=== PATIENT | male | born 1990 | race Caucasian/White ===

== ENCOUNTER 2018-01-17 20:27 | Emergency (ER) | payer SELFPAY ==
[2018-01-17] MEDS ORDERED: DEXAMETHASONE 10 MG/ML VIAL ONE (21:15)
[2018-01-17] MEDS ORDERED: NA CHLORIDE 0.9% 1,000 ML ONE (21:16)
[2018-01-17] MEDS ORDERED: ACETAMINOPHEN 500 MG TAB ONE (21:16)
[2018-01-17] MEDS ORDERED: ONDANSETRON 4 MG/2 ML VIAL ONE (21:16)
[2018-01-17] MEDS ORDERED: KETOROLAC 30 MG/ML INJ ONE (21:16)
[2018-01-17 21:22] LABS: Absolute Lymphocytes (CBC) 2.9 K/uL (0.7-4.9); Absolute Monocytes 0.4 K/uL (0.1-1.3); Absolute Neutrophil 4.9 K/uL (1.8-8.0); Basophils % 0.5 % (0-1.3); Eosinophils % 2.6 % (0-4.4); Hematocrit 40.6 % (39.6-49.0); Lymphocytes % 34.1 % (15.3-44.8); MCV 87.9 fL (80-100); RBC Red Blood Cell Count 4.62 M/uL (4.33-5.43)
--- NOTE | 2018-01-17 21:23 | RAD REPORT ---
EXAM DESCRIPTION: RAD - Chest Single View - 01/17/2018 9:15 pm CLINICAL HISTORY: SOB Chest pain. COMPARISON: <Comparisons> FINDINGS: Portable technique limits examination quality. The lungs are grossly clear. The heart is normal in size. No displaced fractures. IMPRESSION: No acute intrathoracic process suspected.
--- NOTE | 2018-01-17 21:33 | RAD REPORT ---
EXAM DESCRIPTION: CT - Head Brain Wo Cont - 01/17/2018 9:28 pm CLINICAL HISTORY: HEADACHE COMPARISON: No comparisons TECHNIQUE: All CT scans are performed using dose optimization technique as appropriate and may inclu de automated exposure control or mA/KV adjustment according to patient size. FINDINGS: No intracranial hemorrhage, hydrocephalus or extra-axial fluid collection.No areas of brai n edema or evidence of midline shift. The paranasal sinuses and mastoids are clear. The calvarium is intact. IMPRESSION: No acute intracranial abnormality.
[2018-01-17 21:34] LABS: ALT/SGPT 30 U/L (12-78); AST/SGOT 18 U/L (15-37); Albumin 4.3 g/dL (3.4-5.0); Alkaline Phosphatase 68 U/L (45-117); BUN Blood Urea Nitrogen 13 mg/dL (7-18); Bicarbonate 31 mmol/L (21-32); Bilirubin Direct 0.1 mg/dL (0-0.2); Bilirubin Total 0.3 mg/dL (0.2-1.0); Glucose Level 97 mg/dL (74-106); Lipase 272 U/L (73-393); Potassium 3.5 mmol/L (3.5-5.1); Protein, Total 7.3 g/dL (6.4-8.2); Sodium Level 141 mmol/L (136-145)
[2018-01-17 21:34] LABS: Urine Blood NEGATIVE (NEG); Urine Glucose NEGATIVE (NEG); Urine Protein NEGATIVE (NEG)
[2018-01-17 21:40] LABS: Urine Bacteria <20 /HPF (NONE SEEN); Urine Culture Reflex Order NOT NEEDED; Urine RBC <5 /HPF (NONE SEEN)
[2018-01-18] MEDS ORDERED: FENTANYL CITR 100 MCG/2 ML ONE
[2018-01-18] MEDS ORDERED: LORazepam 2 MG/ML VIAL ONE (00:18)
[2018-01-18 01:19] LABS: Appearance CLEAR (CLEAR); Body Fluid Source CSF; Color of fluid Colorless (COLORLESS); Fluid Total Volume 4 ml
[2018-01-18 01:25] LABS: Body Fluid WBC 1 /mm^3
[2018-01-18 01:37] LABS: Appearance CLEAR (CLEAR); Body Fluid Source CSF; Color of fluid Colorless (COLORLESS)
[2018-01-18 01:43] LABS: Body Fluid WBC 0 /mm^3; CSF Glucose 66 mg/dL (40-70)
--- NOTE | 2018-01-18 01:55 | ER ---
Nurse's Notes [facility] Name: Latrell Bush Age: 28 yrs Sex: Male : 1990 Arrival Date: 01/17/2018 Time: 20:30 Bed 27 Private MD: Diagnosis: Acute headache;Acute vomiting;weakness Presentation: 01/17 20:39 Presenting complaint: Patient states: he is having shortness of breath, feeling shaky mg2 and nauseated for 4 days. denies nausea. Transition of care: patient was not received from another setting of care. Onset of symptoms was January 13, 2018. Risk Assessment: Do you want to hurt yourself or someone else? Patient reports no desire to harm self or others. Initial Sepsis Screen: Does the patient meet any 2 criteria? No. Patient's initial sepsis screen is negative. Does the patient have a suspected source of infection? No. Patient's initial sepsis screen is negative. Care prior to arrival: None. 20:39 Method Of Arrival: Ambulatory mg2 20:39 Acuity: KELLY 3 mg2 Historical: - Allergies: 20:42 No Known Allergies; mg2 - Home Meds: 20:42 None [Active]; mg2 - PMHx: 20:42 None; mg2 - PSHx: 20:42 None; mg2 - Immunization history:: Flu vaccine is up to date. - Social history:: Smoking status: Patient/guardian denies using tobacco, Patient/guardian denies using alcohol, street drugs, IV drugs. - Ebola Screening: : No symptoms or risks identified at this time. - Family history:: not pertinent. - Hospitalizations: : No recent hospitalization is reported. Screenin:28 Abuse screen: Denies threats or abuse. Denies injuries from another. Nutritional tl2 screening: No deficits noted. Tuberculosis screening: No symptoms or risk factors identified. Fall Risk IV access (20 points). Assessment: 21:28 General: Appears in no apparent distress. comfortable, Behavior is calm, cooperative. tl2 Pain: Complains of pain in head Pain does not radiate. Pain currently is 6 out of 10 on a pain scale. Quality of pain is described as aching, Pain began gradually, Is intermittent. Neuro: Level of Consciousness is awake, alert, obeys commands, Oriented to person, place, time, situation. Cardiovascular: Capillary refill < 3 seconds Patient's skin is warm and dry. GI: Abdomen is flat, Reports nausea, vomiting. : No signs and/or symptoms were reported regarding the genitourinary system. EENT: No signs and/or symptoms were reported regarding the EENT system. Derm: Skin is intact, Skin is pink, warm \T\ dry. normal. Musculoskeletal: Circulation, motion, and sensation intact. 01/18 00:54 Reassessment: Patient appears in no apparent distress at this time. Patient and/or mg2 family updated on plan of care and expected duration. Pain level reassessed. Patient is alert, oriented x 3, equal unlabored respirations, skin warm/dry/pink. Lumbar puncture done by dr blackmon. Vital Signs: 01/17 20:40 BP 145 / 94; Pulse 90; Resp 18; Temp 98.3(O); Pulse Ox 98% on R/A; Weight 72.57 kg; mg2 Height 5 ft. 7 in. (170.18 cm); Pain 0/10; 21:46 BP 137 / 91; Pulse 79; Resp 18; Pulse Ox 98% on R/A; Pain 5/10; mg2 22:56 BP 131 / 89; Pulse 84; Resp 18; Pulse Ox 98% on R/A; Pain 5/10; mg2 01/18 00:01 BP 135 / 92; Pulse 82; Resp 18; Temp 98.4(O); Pulse Ox 98% on R/A; Pain 5/10; mg2 01:01 BP 132 / 86; Pulse 75; Resp 18; Pulse Ox 100% on R/A; Pain 2/10; mg2 01/17 20:40 Body Mass Index 25.06 (72.57 kg, 170.18 cm) mg2 ED Course: 01/17 20:30 Patient arrived in ED. al2 20:39 Young Chin, TELMA is Primary Nurse. mg2 20:40 Triage completed. mg2 20:45 Aidan Blackmon MD is Attending Physician. wa 21:15 X-ray completed. Portable x-ray completed in exam room. Patient tolerated procedure mh1 well. 21:16 Chest Single View XRAY In Process Unspecified. EDMS 21:29 Head Brain Wo Cont CT In Process Unspecified. EDMS 21:30 Patient has correct armband on for positive identification. Bed in low position. Side tl2 rails up X2. Door closed. 21:30 Inserted saline lock: 20 gauge in right antecubital area, using aseptic technique. tl2 Blood collected. 01/18 00:02 Arm band placed on. mg2 00:54 Assist provider with lumbar puncture: Set up LP tray. Performed by Aidan Blackmon MD mg2 CSF is clear. Puncture site dressed with band aid, Procedure was successful. Patient tolerated well. 01:56 Aries Riojas MD is Referral Physician. wa 02:05 IV discontinued, intact, bleeding controlled, No redness/swelling at site. Pressure mg2 dressing applied. Administered Medications: 01/17 21:27 Drug: Decadron - Dexamethasone 10 mg Route: IVP; Site: right antecubital; tl2 23:03 Follow up: Response: No adverse reaction; Pain is unchanged, physician notified mg2 : Drug: Zofran 4 mg Route: IVP; Site: right antecubital; tl2 23:03 Follow up: Response: No adverse reaction; Nausea is decreased mg2 : Drug: Tylenol 1000 mg Route: PO; tl2 23:02 Follow up: Response: No adverse reaction; Pain is unchanged, physician notified mg2 :28 Drug: NS 0.9% 1000 ml Route: IV; Rate: 1 bolus; Site: right antecubital; tl2 23:03 Follow up: Response: No adverse reaction; IV Status: Completed infusion mg2 21:28 Drug: TORadol 30 mg Route: IVP; Site: right antecubital; tl2 23:03 Follow up: Response: No adverse reaction; Pain is unchanged, physician notified mg2 01/18 00:01 Drug: fentaNYL (PF) 50 mcg Route: IVP; Site: right antecubital; mg2 01:43 Follow up: Response: No adverse reaction; Pain is decreased mg2 00:32 Drug: Ativan 0.5 mg Route: IVP; Site: right antecubital; mg2 01:44 Follow up: Response: No adverse reaction; Marked relief of symptoms mg2 Outcome: 01:55 Discharge ordered by . wa 02:05 Discharged to home ambulatory, with family. mg2 02:05 Condition: stable 02:05 Discharge instructions given to patient, family, Instructed on discharge instructions, follow up and referral plans. medication usage, Demonstrated understanding of instructions, follow-up care, medications, Prescriptions given X 2. 02:19 Patient left the ED. mg2 Signatures: Dispatcher [employer] EDMS Norberto Angela 1 Rosalba Blood, TELMA RN tl2 Aidan Blackmon MD MD wa Love, Angelica al2 Gardose, Michele, TELMA RN mg2 Corrections: (The following items were deleted from the chart) 01/17 20:41 20:40 BP 145 / 94; Pulse 90bpm; Resp 18bpm; Pulse Ox 98% RA; Temp 98.3F Oral; mg2 mg2
--- NOTE | 2018-01-18 01:55 | EDPHYS ---
Physician Documentation [facility] Name: Latrell Bush Age: 28 yrs Sex: Male : 1990 Arrival Date: 01/17/2018 Time: 20:30 Bed 27 Private MD: ED Physician Aidan Blanca HPI: 01/18 00:52 This 28 yrs old Male presents to ER via Ambulatory with complaints of General wa Weakness, Nausea, Breathing Difficulty. 00:52 The patient complains of pain to the diffuse OGLESBY, weakness, nausea and vomiting. The wa patient describes the headache as intermittent, throbbing. Onset: The symptoms/episode began/occurred 4 day(s) ago, gradual onset. worsening. admits to mild photophobia and mild neck pain. Associated signs and symptoms: Pertinent positives: fever, Photophobia vomiting. Severity of symptoms: At its worst the pain was moderate, in the emergency department the pain is unchanged. Headache History: Denies prior headaches. The symptoms are alleviated by nothing. the symptoms are aggravated by nothing. The patient has not experienced similar symptoms in the past. The patient has not recently seen a physician. Historical: - Allergies: 01/17 20:42 No Known Allergies; mg2 - Home Meds: 20:42 None [Active]; mg2 - PMHx: 20:42 None; mg2 - PSHx: 20:42 None; mg2 - Immunization history:: Flu vaccine is up to date. - Social history:: Smoking status: Patient/guardian denies using tobacco, Patient/guardian denies using alcohol, street drugs, IV drugs. - Ebola Screening: : No symptoms or risks identified at this time. - Family history:: not pertinent. - Hospitalizations: : No recent hospitalization is reported. ROS: 01/18 01:01 Eyes: Negative for injury, pain, redness, and discharge, ENT: Negative for injury, wa pain, and discharge, Neck: Negative for injury, pain, and swelling, Cardiovascular: Negative for chest pain, palpitations, and edema, Respiratory: Negative for shortness of breath, cough, wheezing, and pleuritic chest pain, Abdomen/GI: Negative for abdominal pain, nausea, vomiting, diarrhea, and constipation, Back: Negative for injury and pain, : Negative for injury, bleeding, discharge, and swelling, MS/Extremity: Negative for injury and deformity, Skin: Negative for injury, rash, and discoloration. Constitutional: Positive for body aches, chills, fatigue, fever, malaise, Negative for weight loss. Neuro: Positive for headache, vomiting. All other systems are negative. Exam: 01:02 Constitutional: This is a well developed, well nourished patient who is awake, alert, wa and in no acute distress. Head/Face: Normocephalic, atraumatic. Eyes: Pupils equal round and reactive to light, extra-ocular motions intact. Lids and lashes normal. Conjunctiva and sclera are non-icteric and not injected. Cornea within normal limits. Periorbital areas with no swelling, redness, or edema. ENT: Nares patent. No nasal discharge, no septal abnormalities noted. Tympanic membranes are normal and external auditory canals are clear. Oropharynx with no redness, swelling, or masses, exudates, or evidence of obstruction, uvula midline. Mucous membranes moist. Neck: Trachea midline, no thyromegaly or masses palpated, and no cervical lymphadenopathy. Supple, full range of motion without nuchal rigidity, or vertebral point tenderness. No Meningismus. Chest/axilla: Normal chest wall appearance and motion. Nontender with no deformity. No lesions are appreciated. Cardiovascular: Regular rate and rhythm with a normal S1 and S2. No gallops, murmurs, or rubs. Normal PMI, no JVD. No pulse deficits. Respiratory: Lungs have equal breath sounds bilaterally, clear to auscultation and percussion. No rales, rhonchi or wheezes noted. No increased work of breathing, no retractions or nasal flaring. Abdomen/GI: Soft, non-tender, with normal bowel sounds. No distension or tympany. No guarding or rebound. No evidence of tenderness throughout. Back: No spinal tenderness. No costovertebral tenderness. Full range of motion. Skin: Warm, dry with normal turgor. Normal color with no rashes, no lesions, and no evidence of cellulitis. MS/ Extremity: Pulses equal, no cyanosis. Neurovascular intact. Full, normal range of motion. Psych: Awake, alert, with orientation to person, place and time. Behavior, mood, and affect are within normal limits. 01:02 Neuro: Orientation: is normal, Mentation: is normal, Cranial nerves: grossly normal, Motor: is normal, Gait: is steady. Vital Signs: 01/17 20:40 BP 145 / 94; Pulse 90; Resp 18; Temp 98.3(O); Pulse Ox 98% on R/A; Weight 72.57 kg; mg2 Height 5 ft. 7 in. (170.18 cm); Pain 0/10; 21:46 BP 137 / 91; Pulse 79; Resp 18; Pulse Ox 98% on R/A; Pain 5/10; mg2 22:56 BP 131 / 89; Pulse 84; Resp 18; Pulse Ox 98% on R/A; Pain 5/10; mg2 01/18 00:01 BP 135 / 92; Pulse 82; Resp 18; Temp 98.4(O); Pulse Ox 98% on R/A; Pain 5/10; mg2 01:01 BP 132 / 86; Pulse 75; Resp 18; Pulse Ox 100% on R/A; Pain 2/10; mg2 01/17 20:40 Body Mass Index 25.06 (72.57 kg, 170.18 cm) mg2 Procedures: 01:03 Lumbar Puncture: Patient placed in right lateral decubitus position. Prepped with ct Betadine. Draped using sterile technique. clear fluid. Puncture site dressed with band aid, Patient tolerated well. MDM: 01/17 20:[address] 01/18 01:02 Differential diagnosis: OGLESBY. eval to r/o meningitis. treat symptoms. reassess. Data ct reviewed: vital signs, nurses notes, lab test result(s). Test interpretation: by ED physician or midlevel provider: cbc, CMP, UA noted wnl. . :53 Test interpretation: by ED physician or midlevel provider: CSF analysis: normal. . ct 01:53 Response to treatment: the patient's symptoms have markedly improved after treatment. ct ED course: CSF negative. . 01/17 21:02 Order name: Basic Metabolic Panel; Complete Time: 22:08 ct 01/17 21:02 Order name: CBC with Diff; Complete Time: 22:08 ct 01/17 21:02 Order name: Hepatic Function; Complete Time: 22:08 01/17 21:02 Order name: Lipase; Complete Time: 22:08 01/17 21:02 Order name: Urine Microscopic Only; Complete Time: 22:08 01/17 21:28 Order name: Urine Dipstick--Ancillary (enter results); Complete Time: 22:07 5 01/17 21:03 Order name: Head Brain Wo Cont CT; Complete Time: 22:08 ct 01/17 23:06 Order name: CSF Bacterial Antigens (tube 1); Complete Time: 01:52 01/17 23:06 Order name: Csf Culture 01/17 23:06 Order name: Fluid Cell Count,Body; Complete Time: 01:52 01/17 23:06 Order name: Spinal Fluid Profile; Complete Time: 01:53 01/17 23:07 Order name: Csf Glucose 01/17 21:02 Order name: IV Saline Lock; Complete Time: 21:08 01/17 21:02 Order name: Labs collected and sent; Complete Time: 21: ct 01/17 21:02 Order name: Urine Dipstick-Ancillary (obtain specimen); Complete Time: 21:28 ct 01/17 21:03 Order name: Chest Single View XRAY; Complete Time: 22:08 ct 01/17 23:06 Order name: LP Consents; Complete Time: 23:17 01/17 23:06 Order name: LP Setup; Complete Time: 23:17 ct Administered Medications: 01/17 21:27 Drug: Decadron - Dexamethasone 10 mg Route: IVP; Site: right antecubital; tl2 23:03 Follow up: Response: No adverse reaction; Pain is unchanged, physician notified mg2 : Drug: Zofran 4 mg Route: IVP; Site: right antecubital; tl2 23:03 Follow up: Response: No adverse reaction; Nausea is decreased mg2 :27 Drug: Tylenol 1000 mg Route: PO; tl2 23:02 Follow up: Response: No adverse reaction; Pain is unchanged, physician notified mg2 :28 Drug: NS 0.9% 1000 ml Route: IV; Rate: 1 bolus; Site: right antecubital; tl2 23:03 Follow up: Response: No adverse reaction; IV Status: Completed infusion mg2 :28 Drug: TORadol 30 mg Route: IVP; Site: right antecubital; tl2 23:03 Follow up: Response: No adverse reaction; Pain is unchanged, physician notified mg2 01/18 00:01 Drug: fentaNYL (PF) 50 mcg Route: IVP; Site: right antecubital; mg2 01:43 Follow up: Response: No adverse reaction; Pain is decreased mg2 00:32 Drug: Ativan 0.5 mg Route: IVP; Site: right antecubital; mg2 01:44 Follow up: Response: No adverse reaction; Marked relief of symptoms mg2 Disposition: 01/18/18 01:55 Discharged to Home. Impression: Acute headache, Acute vomiting, weakness. - Condition is Stable. - Discharge Instructions: Nausea and Vomiting, Adult, Onko-zt-Cnza, Weakness, Egrs-qa-Dswi, General Headache Without Cause, Smnm-os-Dwwm. - Prescriptions for Zofran 4 mg Oral Tablet - take 1 tablet by ORAL route every 12 hours As needed; 6 tablet. Ibuprofen 600 mg Oral Tablet - take 1 tablet by ORAL route every 6 hours As needed take with food; 30 tablet. - Medication Reconciliation Form, Thank You Letter, Antibiotic Education, Prescription Opioid Use form. - Follow up: Private Physician; When: 1 - 2 days; Reason: Recheck today's complaints. Follow up: Aries Mattson MD; When: 2 - 3 days; Reason: Recheck today's complaints. - Problem is new. - Symptoms have improved. - Notes: follow up with the neurologist Dr. mattson for further evaluation and treatment. return here for worsening concerns immediately Signatures: Dispatcher [employer] EDRosalba Watson, RN RN tl2 Aidan Blanca MD MD wa Gardose, Michele, RN RN mg2 Corrections: (The following items were deleted from the chart) 01:03 01/17 23:07 CSF TOTAL PROTEIN+C.LAB.BRZ ordered. [facility] 01/18 01:03 01/17 23:07 CSF Glucose ordered. [facility] 01/18 01:56 01:55 01/18/2018 01:55 Discharged to Home. Impression: Acute headache; Acute vomiting; wa weakness. Condition is Stable. Forms are Medication Reconciliation Form, Thank You Letter, Antibiotic Education, Prescription Opioid Use. Follow up: Private Physician; When: 1 - 2 days; Reason: Recheck today's complaints. Problem is new. Symptoms have improved. wa 02:19 01:56 01/18/2018 01:55 Discharged to Home. Impression: Acute headache; Acute vomiting; mg2 weakness. Condition is Stable. Discharge Instructions: Nausea and Vomiting, Adult, Beel-gf-Yoyj, Weakness, Zrgy-az-Dgxs, General Headache Without Cause, Cjju-mj-Qnvg. Prescriptions for Zofran 4 mg Oral Tablet - take 1 tablet by ORAL route every 12 hours As needed; 6 tablet, Ibuprofen 600 mg Oral Tablet - take 1 tablet by ORAL route every 6 hours As needed take with food; 30 tablet. and Forms are Medication Reconciliation Form, Thank You Letter, Antibiotic Education, Prescription Opioid Use. Follow up: Private Physician; When: 1 - 2 days; Reason: Recheck today's complaints. Follow up: Aries Mattson; When: 2 - 3 days; Reason: Recheck today's complaints. Problem is new. Symptoms have improved. wa
== END 2018-01-18 02:19 | disposition home or self-care (01) ==
LOC: ER 20:27
PROC: 00JU3ZZ Inspection of Spinal Canal, Percutaneous Approach (ICD-10-PCS; principal; 2018-01-18)
DX: R51 Headache (principal); R11.2 Nausea with vomiting, unspecified; R53.1 Weakness; R06.02 Shortness of breath
CPT/HCPCS: 36415; 62270; 70450; 71045; 80048; 80076; 81003; 81015; 82945; 83690; 84157; 85025; 86403; 87070; 89050; 96361; 96374; 96375; 99284; J1100; J2405; J3010; J7030

== ENCOUNTER 2018-02-02 09:37 | Emergency (ER) | payer SELFPAY ==
[2018-02-02] MEDS ORDERED: ONDANSETRON 4 MG/2 ML VIAL ONE (10:06)
[2018-02-02] MEDS ORDERED: NA CHLORIDE 0.9% 1,000 ML ONE (10:06)
[2018-02-02 10:42] LABS: Absolute Monocytes 0.7 K/uL (0.1-1.3); Absolute Neutrophil 7.9 K/uL (1.8-8.0); Basophils % 0.2 % (0-1.3); Eosinophils % 0.1 % (0-4.4); Hematocrit 41.9 % (39.6-49.0); Lymphocytes % 10.6 % (15.3-44.8); MCH 30.9 pg (27.0-35.0); MCV 87.7 fL (80-100); MPV 8.4 fL (7.6-11.3); Monocytes % 7.2 % (3.3-12.3); RBC Red Blood Cell Count 4.77 M/uL (4.33-5.43)
[2018-02-02 10:48] LABS: ALT/SGPT 28 U/L (12-78); AST/SGOT 19 U/L (15-37); Albumin 4.1 g/dL (3.4-5.0); Alkaline Phosphatase 70 U/L (45-117); BUN Blood Urea Nitrogen 9 mg/dL (7-18); Bicarbonate 27 mmol/L (21-32); Bilirubin Direct 0.1 mg/dL (0-0.2); Bilirubin Total 0.5 mg/dL (0.2-1.0); Glucose Level 120 mg/dL (74-106); Lipase 337 U/L (73-393); Potassium 3.9 mmol/L (3.5-5.1); Protein, Total 7.8 g/dL (6.4-8.2); Sodium Level 136 mmol/L (136-145)
--- NOTE | 2018-02-02 11:20 | ER ---
Nurse's Notes [facility] Name: Latrell Bush Age: 28 yrs Sex: Male : 1990 Arrival Date: 02/02/2018 Time: 09:39 Bed 18 Private MD: Diagnosis: Vomiting;Viral syndrome Presentation: 02/02 09:50 Presenting complaint: Patient states: Nausea, chills, headache, body aches, and fever x hb 3 days. Vomit x 2 today. TMAX 101. Transition of care: patient was not received from another setting of care. Onset of symptoms was January 31, 2018. Risk Assessment: Do you want to hurt yourself or someone else? Patient reports no desire to harm self or others. Care prior to arrival: None. 09:50 Method Of Arrival: Ambulatory hb 09:50 Acuity: KELLY 3 hb 10:18 Initial Sepsis Screen: Does the patient meet any 2 criteria? No. Patient's initial em sepsis screen is negative. Does the patient have a suspected source of infection? No. Patient's initial sepsis screen is negative. Historical: - Allergies: 09:51 No Known Allergies; hb - Home Meds: 09:51 None [Active]; hb - PMHx: 09:51 None; hb - PSHx: 09:51 None; hb - Immunization history:: Adult Immunizations up to date. - Social history:: Smoking status: Patient/guardian denies using tobacco. - Ebola Screening: : No symptoms or risks identified at this time. - Family history:: not pertinent. - Hospitalizations: : No recent hospitalization is reported. Screenin:59 Abuse screen: Denies threats or abuse. Nutritional screening: No deficits noted. em Tuberculosis screening: No symptoms or risk factors identified. Fall Risk None identified. Assessment: 10:07 General: Appears in no apparent distress. comfortable, Behavior is calm, cooperative. em Pain: Complains of pain in face and abdomen Pain currently is 7 out of 10 on a pain scale. Neuro: Level of Consciousness is awake, alert, obeys commands, Oriented to person, place, time, situation, Moves all extremities. Speech is normal, Reports headache. Cardiovascular: Capillary refill < 3 seconds Patient's skin is warm and dry. Respiratory: Airway is patent Respiratory effort is even, unlabored, Respiratory pattern is regular, symmetrical. GI: Abdomen is flat, Reports nausea, vomiting. : No signs and/or symptoms were reported regarding the genitourinary system. EENT: No signs and/or symptoms were reported regarding the EENT system. Derm: Skin is intact, Skin is pink, warm \T\ dry. Musculoskeletal: Range of motion: intact in all extremities. 10:10 Reassessment: I agree with previous assessment. hb 10:51 Reassessment: Patient appears in no apparent distress at this time. Patient and/or em family updated on plan of care and expected duration. Pain level reassessed. Patient states feeling better. 11:34 Reassessment: Patient appears in no apparent distress at this time. Patient and/or em family updated on plan of care and expected duration. Pain level reassessed. Patient is alert, oriented x 3, equal unlabored respirations, skin warm/dry/pink. Patient states feeling better. Patient states symptoms have improved. Vital Signs: 09:50 BP 116 / 84; Pulse 84; Resp 16; Temp 98.7; Pulse Ox 100% on R/A; Pain 7/10; hb 10:52 BP 131 / 84; Pulse 76; Resp 18; Pulse Ox 98% on R/A; em ED Course: 09:39 Patient arrived in ED. as 09:40 Teddy Ramirez MD is Attending Physician. rn 09:51 Triage completed. hb 09:51 Arm band placed on right wrist. hb 09:59 Gregory Odell LVN is Primary Nurse. em 09:59 Patient has correct armband on for positive identification. Bed in low position. Call em light in reach. Side rails up X2. Adult w/ patient. 09:59 No provider procedures requiring assistance completed. em 10:10 Initial lab(s) drawn, by me, sent to lab. Inserted saline lock: 20 gauge in right em antecubital area, using aseptic technique. Blood collected. 11:33 IV discontinued, intact, bleeding controlled, No redness/swelling at site. Pressure em dressing applied. Administered Medications: 10:15 Drug: NS 0.9% 1000 ml Route: IV; Rate: 1000 ml; Site: right antecubital; em 11:00 Follow up: IV Status: Completed infusion; IV Intake: 1000ml em 10:15 Drug: Zofran 4 mg Route: IVP; Site: right antecubital; hb 11:32 Follow up: Response: No adverse reaction; Nausea is decreased em Intake: 11:00 IV: 1000ml; Total: 1000ml. em Outcome: 11:19 Discharge ordered by . rn 11:33 Discharged to home ambulatory. em 11:33 Condition: good 11:33 Discharge instructions given to patient, Instructed on discharge instructions, follow up and referral plans. medication usage, Demonstrated understanding of instructions, follow-up care, medications, Prescriptions given X 1. 11:34 Patient left the ED. em Signatures: Gregory Odell, [employer] Kala Garcia Roman, MD MD rn Baxter, Heather, RN RN hb
--- NOTE | 2018-02-02 11:20 | EDPHYS ---
Physician Documentation [facility] Name: Latrell Bush Age: 28 yrs Sex: Male : 1990 Arrival Date: 02/02/2018 Time: 09:39 Bed 18 Private MD: ED Physician Teddy Ramirez HPI: 02/02 10:05 This 28 yrs old Male presents to ER via Ambulatory with complaints of rn Vomiting, Fever. 10:05 The patient presents to the emergency department with nausea, vomiting. Onset: The rn symptoms/episode began/occurred 3 day(s) ago. Possible causes: unknown. The symptoms are aggravated by nothing. The symptoms are alleviated by nothing. Associated signs and symptoms: Pertinent positives: fever, nausea, vomiting. Severity of symptoms: At their worst the symptoms were mild in the emergency department the symptoms are unchanged. The patient has experienced a previous episode. Reports headache, chills, nausea/vomiting, fatigue, sore throat, for 3 days, similar symptoms recently, had neg CSF and w/u, got better, reports chills are the worst, tmax 101, no sick contacts, no abd pain currently, has thrown up twice today, also with runny nose. No neck pain.. Historical: - Allergies: 09:51 No Known Allergies; hb - Home Meds: 09:51 None [Active]; hb - PMHx: 09:51 None; hb - PSHx: 09:51 None; hb - Immunization history:: Adult Immunizations up to date. - Social history:: Smoking status: Patient/guardian denies using tobacco. - Ebola Screening: : No symptoms or risks identified at this time. - Family history:: not pertinent. - Hospitalizations: : No recent hospitalization is reported. ROS: 10:05 Constitutional: Negative for weight loss Eyes: Negative for injury, pain, redness, and hemodialysis rn, ENT: + runny nose and sore throat Neck: Negative for injury, pain, and swelling, Cardiovascular: Negative for chest pain, palpitations, and edema, Respiratory: Negative for shortness of breath, cough, wheezing, and pleuritic chest pain, Abdomen/GI: Negative for abdominal pain, diarrhea, and constipation, Back: Negative for injury and pain, : Negative for injury, bleeding, discharge, and swelling, MS/Extremity: Negative for injury and deformity, Skin: Negative for injury, rash, and discoloration, Neuro: Negative for weakness, numbness, tingling, and seizure. Exam: 10:05 Constitutional: This is a well developed, well nourished patient who is awake, alert, rn and in no acute distress. Head/Face: Normocephalic, atraumatic. Eyes: Pupils equal round and reactive to light, extra-ocular motions intact. Lids and lashes normal. Conjunctiva and sclera are non-icteric and not injected. Cornea within normal limits. Periorbital areas with no swelling, redness, or edema. ENT: Nares patent. No nasal discharge, no septal abnormalities noted. Oropharynx with no redness, swelling, or masses, exudates, or evidence of obstruction, uvula midline. Mucous membranes moist. Neck: Trachea midline, no thyromegaly or masses palpated, and no cervical lymphadenopathy. Supple, full range of motion without nuchal rigidity, or vertebral point tenderness. No Meningismus. Cardiovascular: Regular rate and rhythm with a normal S1 and S2. No gallops, murmurs, or rubs. Normal PMI, no JVD. No pulse deficits. Respiratory: Lungs have equal breath sounds bilaterally, clear to auscultation and percussion. No rales, rhonchi or wheezes noted. No increased work of breathing, no retractions or nasal flaring. Abdomen/GI: Soft, non-tender, with normal bowel sounds. No distension or tympany. No guarding or rebound. No evidence of tenderness throughout. Skin: Warm, dry with normal turgor. Normal color with no rashes, no lesions, and no evidence of cellulitis. MS/ Extremity: Pulses equal, no cyanosis. Neurovascular intact. Full, normal range of motion. Equal circumference. Neuro: Awake and alert, GCS 15, oriented to person, place, time, and situation. Cranial nerves II-XII grossly intact. Motor strength 5/5 in all extremities. Sensory grossly intact. Cerebellar exam normal. Normal gait. Vital Signs: 09:50 BP 116 / 84; Pulse 84; Resp 16; Temp 98.7; Pulse Ox 100% on R/A; Pain 7/10; hb 10:52 BP 131 / 84; Pulse 76; Resp 18; Pulse Ox 98% on R/A; em MDM: 09:49 Patient medically screened. rn 11:17 Differential diagnosis: gastritis, viral gastroenteritis, gastroenteritis, viral rn syndrome. Data reviewed: vital signs, nurses notes, lab test result(s), and as a result, I will discharge patient. Counseling: I had a detailed discussion with the patient and/or guardian regarding: the historical points, exam findings, and any diagnostic results supporting the discharge/admit diagnosis, lab results, the need for outpatient follow up, to return to the emergency department if symptoms worsen or persist or if there are any questions or concerns that arise at home. Response to treatment: the patient's symptoms have markedly improved after treatment, and as a result, I will discharge patient. Special discussion: I discussed with the patient/guardian in detail that at this point there is no indication for admission to the hospital. It is understood, however, that if the symptoms persist or worsen the patient needs to return immediately for re-evaluation. ED course: Symptoms most consistent with viral syndrome, normal wbc and procal, will dc home with pcp f/u and zofran prn, along with fever control, normal vitals, no meningismus, normal neuro exam. . 02/02 09:57 Order name: Basic Metabolic Panel; Complete Time: :02/02 09:57 Order name: CBC with Diff; Complete Time: 10:48 02/02 09:57 Order name: Hepatic Function; Complete Time: :02/02 09:57 Order name: Lipase; Complete Time: :02/02 09:57 Order name: Strep; Complete Time: 10:48 02/02 09:57 Order name: Flu; Complete Time: 10:48 02/02 09:57 Order name: IV Saline Lock; Complete Time: 10:02/02 09:57 Order name: Labs collected and sent; Complete Time: 10:02/02 09:57 Order name: [place]ckett Screen Profile; Complete Time: 10:48 02/02 09:57 Order name: Procalcitonin; Complete Time: :02/02 10:40 Order name: Throat Culture EDMS Administered Medications: 10:15 Drug: NS 0.9% 1000 ml Route: IV; Rate: 1000 ml; Site: right antecubital; em 11:00 Follow up: IV Status: Completed infusion; IV Intake: 1000ml em 10:15 Drug: Zofran 4 mg Route: IVP; Site: right antecubital; hb 11:32 Follow up: Response: No adverse reaction; Nausea is decreased em Disposition: 02/02/18 11:19 Discharged to Home. Impression: Vomiting, Viral syndrome. - Condition is Stable. - Discharge Instructions: Nausea and Vomiting, Adult. - Prescriptions for Zofran ODT 4 mg Oral tablet,disintegrating - place 1 tablet by TRANSLINGUAL route every 8-10 hours As needed; 20 tablet. - Medication Reconciliation Form, Thank You Letter, Antibiotic Education, Prescription Opioid Use form. - Follow up: Private Physician; When: As needed; Reason: Recheck today's complaints, Re-evaluation by your physician. - Problem is new. - Symptoms have improved. Signatures: Dispatcher [employer] EDGregory Montalvo, MENHADEN VESSEL PILOT MENHADEN VESSEL PILOT Teddy Young MD MD rn Baxter, Heather, RN RN Corrections: (The following items were deleted from the chart) 11:34 11:19 02/02/2018 11:19 Discharged to Home. Impression: Vomiting; Viral syndrome. em Condition is Stable. Forms are Medication Reconciliation Form, Thank You Letter, Antibiotic Education, Prescription Opioid Use. Follow up: Private Physician; When: As needed; Reason: Recheck today's complaints, Re-evaluation by your physician. Problem is new. Symptoms have improved. rn
== END 2018-02-02 11:34 | disposition home or self-care (01) ==
LOC: ER 09:37
DX: R11.10 Vomiting, unspecified (principal); B34.9 Viral infection, unspecified
CPT/HCPCS: 36415; 80048; 80076; 83690; 84145; 85025; 86308; 87070; 87081; 87804; 96361; 96374; 99284; J2405; J7030

== ENCOUNTER 2019-07-25 18:25 | Emergency (ER) | payer SELFPAY ==
[2019-07-25] MEDS ORDERED: ONDANSETRON 4 MG (ODT) TAB ONE (18:56)
[2019-07-25] MEDS ORDERED: FENTANYL CITR 100 MCG/2 ML ONE (18:56)
[2019-07-25] MEDS ORDERED: DIAZEPAM 10 MG/2 ML INJ SYRINGE ONE (19:10)
--- NOTE | 2019-07-25 20:47 | RAD REPORT ---
EXAM DESCRIPTION: RAD - Shoulder Left 2 View - 07/25/2019 8:33 pm CLINICAL HISTORY: Left shoulder pain FINDINGS: No fracture or dislocation is seen.
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
== END 2019-07-25 21:09 | disposition home or self-care (01) ==
LOC: ER 18:25
PROC: 0RSKXZZ Reposition Left Shoulder Joint, External Approach (ICD-10-PCS; principal; 2019-07-25)
DX: S43.085A Other dislocation of left shoulder joint, initial encounter (principal); Y93.72 Activity, wrestling; Y92.9 Unspecified place or not applicable
CPT/HCPCS: 96372; 96374; 99284; J3010; J3360

== ENCOUNTER 2020-09-02 01:55 | Emergency (ER) | payer SELFPAY ==
[2020-09-02] MEDS ORDERED: NA CHLORIDE 0.9% 1,000 ML ONE (02:26)
[2020-09-02] MEDS ORDERED: KETOROLAC 30 MG/ML INJ ONE (02:58)
[2020-09-02] MEDS ORDERED: LIDOCAINE 1% W/EPI 1:100,000 MDV 20 ML VIAL ONE (03:04)
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
--- NOTE | 2020-09-02 03:19 | EDPHYS ---
Physician Documentation [facility] Name: Latrell Bush Age: 30 yrs Sex: Male : 1990 Arrival Date: 09/02/2020 Time: 01:58 Bed 6 Private MD: ED Physician Saúl Jenkins HPI: 09/02 03:43 This 30 yrs old Male presents to ER via EMS with complaints of Head tw4 Injury-Adult. 03:43 The patient or guardian reports a laceration. The complaints affect the forehead. tw4 Context of injury: The problem was sustained at home. Onset: The symptoms/episode began/occurred today. Associated signs and symptoms: Loss of consciousness: This patient did not experience any loss of consciousness. Severity of symptoms: At their worst the symptoms were moderate, in the emergency department the symptoms are unchanged. The patient has not experienced similar symptoms in the past. Historical: - Allergies: 02:02 No Known Allergies; em - Home Meds: 02:02 None [Active]; em - PMHx: 02:02 None; em - PSHx: 02:02 left shoulder; em - Immunization history:: Last tetanus immunization: < 5 years ago. - Social history:: Smoking status: Reported history of juuling and/or vaping. ROS: 03:43 Constitutional: Negative for fever, chills, and weight loss, Eyes: Negative for injury, tw4 pain, redness, and discharge, Cardiovascular: Negative for chest pain, palpitations, and edema, Respiratory: Negative for shortness of breath, cough, wheezing, and pleuritic chest pain, Abdomen/GI: Negative for abdominal pain, nausea, vomiting, diarrhea, and constipation, Back: Negative for injury and pain, MS/Extremity: Negative for injury and deformity, Skin: Negative for injury, rash, and discoloration, Neuro: Negative for headache, weakness, numbness, tingling, and seizure. Exam: 03:43 Constitutional: This is a well developed, well nourished patient who is awake, alert, tw4 and in no acute distress. 03:43 ENT: Nares patent. No nasal discharge, no septal abnormalities noted. Tympanic membranes are normal and external auditory canals are clear. Oropharynx with no redness, swelling, or masses, exudates, or evidence of obstruction, uvula midline. Mucous membranes moist. Neck: Trachea midline, no thyromegaly or masses palpated, and no cervical lymphadenopathy. Supple, full range of motion without nuchal rigidity, or vertebral point tenderness. No Meningismus. Chest/axilla: Normal chest wall appearance and motion. Nontender with no deformity. No lesions are appreciated. Cardiovascular: Regular rate and rhythm with a normal S1 and S2. No gallops, murmurs, or rubs. Normal PMI, no JVD. No pulse deficits. Respiratory: Lungs have equal breath sounds bilaterally, clear to auscultation and percussion. No rales, rhonchi or wheezes noted. No increased work of breathing, no retractions or nasal flaring. Abdomen/GI: Soft, non-tender, with normal bowel sounds. No distension or tympany. No guarding or rebound. No evidence of tenderness throughout. Back: No spinal tenderness. No costovertebral tenderness. Full range of motion. 03:43 Head/face: Noted is a laceration(s), that is superficial, 3 cm(s). 03:43 Musculoskeletal/extremity: Extremities: noted in the dorsal aspect of left forearm: laceration, ROM: no acute changes, Circulation is intact in all extremities. Vital Signs: 01:58 BP 124 / 81; Pulse 122; Resp 18; Pulse Ox 99% on R/A; Weight 72.57 kg; Height 5 ft. 7 em in. (170.18 cm); Pain 10/10; 02:15 Temp 98.3; rr5 02:55 BP 121 / 70; Pulse 112; Resp 19; Pulse Ox 98% ; rr5 03:05 BP 132 / 88; Pulse 105; Resp 18; Pulse Ox 93% ; ea 03:46 BP 130 / 81; Pulse 103; Resp 19; Pulse Ox 99% ; rr5 01:58 Body Mass Index 25.06 (72.57 kg, 170.18 cm) em Lilly Coma Score: 01:58 Eye Response: spontaneous(4). Verbal Response: oriented(5). Motor Response: obeys em commands(6). Total: 15. 03:43 Eye Response: spontaneous(4). Verbal Response: oriented(5). Motor Response: obeys tw4 commands(6). Total: 15. 03:43 Eye Response: spontaneous(4). Verbal Response: oriented(5). Motor Response: obeys tw4 commands(6). Total: 15. Laceration: 03:43 Wound Repair of 3cm ( 1.2in ) subcutaneous laceration to forehead. Distal tw4 neuro/vascular/tendon intact. Anesthesia: Local anesthetic administered with 3 mls of 1% lidocaine w/ Epi. Wound prep: Moderate cleansing with betadine. Skin closed with 6 1-0 Mellisa using simple sutures and sterile technique. Dressed with Bacitracin, bandaid. Patient tolerated well. 03:43 Wound Repair of 1cm ( 0.4in ) subcutaneous laceration to dorsal aspect of left forearm. tw4 Linear shaped.. Distal neuro/vascular/tendon intact. Anesthesia: Local anesthetic administered with 1% lidocaine. Wound prep: Moderate cleansing. Skin closed with 3 1-0 Mellisa using simple sutures and sterile technique. Dressed with Bacitracin, bandaid. Patient tolerated well. MDM: 01:59 Patient medically screened. tw4 03:43 Differential diagnosis:. Data reviewed: vital signs, nurses notes. Data interpreted: tw4 food photographer: rhythm is normal sinus rhythm, Pulse oximetry: Interpretation: normal. Counseling: I had a detailed discussion with the patient and/or guardian regarding: the historical points, exam findings, and any diagnostic results supporting the discharge/admit diagnosis. Special discussion: I discussed with the patient/guardian in detail that at this point there is no indication for admission to the hospital. It is understood, however, that if the symptoms persist or worsen the patient needs to return immediately for re-evaluation. 09/02 02:04 Order name: CT Head C Spine ea 09/02 02:04 Order name: XRAY Shoulder LEFT 2 view ea 09/02 02:04 Order name: IV Start; Complete Time: 02:10 ea 09/02 03:05 Order name: Suture Tray at Bedside; Complete Time: 03:05 rr5 Administered Medications: 02:10 Drug: NS 0.9% 1000 ml Route: IV; Rate: 1 bolus; Site: right antecubital; ea 03:52 Follow up: Response: No adverse reaction; IV Status: Completed infusion; IV Intake: rr5 1000ml 02:44 Drug: TORadol 30 mg Route: IVP; Site: right antecubital; ea 02:54 Follow up: Response: No adverse reaction ea 03:30 Follow up: Response: No adverse reaction rr5 03:10 Drug: Lidocaine-Epinephrine -1%: (1:100,000) 10 ml {Note: administered by provider.} ea Volume: 20 ml; Route: Infiltration; 03:52 Follow up: Response: No adverse reaction; Pain is decreased rr5 03:47 Drug: Tetanus-Diphtheria Toxoid Adult 0.5 ml {Sales Relationship Manager: [employer]. Exp: ea 11/28/2021. Lot #: [id number]. } Route: IM; Site: right deltoid; 03:52 Follow up: Response: No adverse reaction rr5 Disposition: 09/02/20 03:18 Discharged to Home. Impression: Laceration without foreign body of scalp, Concussion without loss of consciousness, Laceration of superficial vein at shoulder and upper arm level, left arm. - Condition is Stable. - Discharge Instructions: Laceration Care, Adult, Post-Concussion Syndrome, Head Injury, Adult, [id number]. - Prescriptions for Ibuprofen 800 mg Oral Tablet - take 1 tablet by ORAL route every 12 hours As needed take with food; 20 tablet. - Medication Reconciliation Form, Thank You Letter, Antibiotic Education, Prescription Opioid Use form. - Follow up: Private Physician; When: Upon discharge from the Emergency Department; Reason: Recheck today's complaints, Continuance of care, Re-evaluation by your physician. - Problem is new. - Symptoms have improved. Signatures: Dispatcher [employer] Gregory Fraser RN RN Jeniffer Benitez RN Saúl Rodriges ea, MD MD tw4 Storm Willingham RN RN rr5 Corrections: (The following items were deleted from the chart) 03:53 03:18 09/02/2020 03:18 Discharged to Home. Impression: Laceration without foreign body rr5 of scalp; Concussion without loss of consciousness; Laceration of superficial vein at shoulder and upper arm level, left arm. Condition is Stable. Forms are Medication Reconciliation Form, Thank You Letter, Antibiotic Education, Prescription Opioid Use. Follow up: Private Physician; When: Upon discharge from the Emergency Department; Reason: Recheck today's complaints, Continuance of care, Re-evaluation by your physician. Problem is new. Symptoms have improved. tw4
[2020-09-02] MEDS ORDERED: TETANUS & DIPHTHERIA TOX,ADULT 0.5 ML VIAL ONE (03:34)
[2020-09-02 04:07] VITALS: BP 130/81; O2SAT 99
--- NOTE | 2020-09-02 08:23 | RAD REPORT ---
EXAM DESCRIPTION: RAD - Shoulder Left 2 View - 09/02/2020 2:19 am CLINICAL HISTORY: PAIN COMPARISON: Shoulder Left 2 View dated 07/25/2019 TECHNIQUE: Internal and external rotation views of the left shoulder were obtained. FINDINGS: There is no fracture or dislocation. AC joint is normal in appearance. No acute or suspici ous findings. IMPRESSION: Negative two-view left shoulder examination for acute findings.
--- NOTE | 2020-09-02 10:51 | RAD REPORT ---
EXAM DESCRIPTION: CT - [id number] - 09/02/2020 6:52 am CLINICAL HISTORY: The patient is 30 years old and is Male; PAIN TECHNIQUE: Axial computed tomography images of the head/brain and cervical spine without intravenous contrast. Sagittal and coronal reformatted images were created and reviewed. This CT exam was pe rformed using one or more of the following dose reduction techniques: automated exposure control, a djustment of the mA and/or kV according to patient size, and/or use of iterative reconstruction techn ique. COMPARISON: No relevant prior studies available. FINDINGS: LIMITATIONS: The patient is slightly rotated in the scanner which limits evaluation. BRAIN: Unremarkable. No hemorrhage. No significant white matter disease. No edema. VENTRICLES: Unremarkable. No ventriculomegaly. SKULL: No acute fracture. SINUSES: Unremarkable as visualized. No acute sinusitis. MASTOID AIR CELLS: Unremarkable as visualized. No mastoid effusion. VERTEBRAE: Slight reversal the normal cervical curvature is present which may be secondary to pa tient position versus muscle spasm. The vertebral body heights and alignment are maintained. No acu te fracture. DISCS/SPINAL CANAL/NEURAL FORAMINA: The intervertebral disc spaces are maintained. No spinal can al stenosis. SOFT TISSUES: Large left frontal scalp hematoma and laceration is present. Minimal right poste rior scalp soft tissue swelling is present. LUNG APICES: Unremarkable as visualized. IMPRESSION: 1. No acute intracranial findings. Large left frontal scalp hematoma and laceration an d small right posterior scalp soft tissue swelling. 2. No fracture or malalignment of the cervical spine. Electronically signed by: Judy Hills MD 09/02/2020 2:43 AM RETAIL FINANCIAL ANALYST Due to temporary technical issues with the PACS/Fluency reporting system, reports are being signed by the in house radiologist without review as a courtesy to ensure prompt reporting. The interpreting r adiologist is fully responsible for the content of the report.
== END 2020-09-02 03:53 | disposition home or self-care (01) ==
LOC: ER 01:55
PROC: 0JQ00ZZ Repair Scalp Subcutaneous Tissue and Fascia, Open Approach (ICD-10-PCS; principal; 2020-09-02)
PROC: 0JQH0ZZ Repair Left Lower Arm Subcutaneous Tissue and Fascia, Open Approach (ICD-10-PCS; 2020-09-02)
DX: S06.0X0A Concussion without loss of consciousness, initial encounter (principal); S51.812A Laceration without foreign body of left forearm, initial encounter; W50.0XXA Accidental hit or strike by another person, initial encounter; Y93.9 Activity, unspecified; Y92.89 Other specified places as the place of occurrence of the external cause; Z23 Encounter for immunization
CPT/HCPCS: 70450; 72125; 90471; 90714; 96361; 96374; 99285; J7030

== ENCOUNTER 2020-09-18 14:03 | Emergency (ER) | payer SELFPAY ==
--- NOTE | 2020-09-18 14:43 | ER ---
Nurse's Notes [facility] Name: Latrell Bush Age: 30 yrs Sex: Male : 1990 Arrival Date: 09/18/2020 Time: 14:05 Bed 25 Private MD: Diagnosis: Encounter for removal of sutures-aster Presentation: 09/18 14:26 Chief complaint: Patient states: Needs aster removed from L arm and head. Placed here ll1 on the . Coronavirus screen: Client denies travel out of the [place] in the last 14 days. At this time, the client does not indicate any symptoms associated with coronavirus-19. Ebola Screen: Patient denies travel to an Ebola-affected area in the 21 days before illness onset. Initial Sepsis Screen: Does the patient meet any 2 criteria? HR > 90 bpm. No. Patient's initial sepsis screen is negative. Does the patient have a suspected source of infection? Yes: Skin breakdown/wound. Risk Assessment: Do you want to hurt yourself or someone else? Patient reports no desire to harm self or others. Onset of symptoms was September 01, 2020. 14:26 Method Of Arrival: Ambulatory ll1 14:26 Acuity: KELLY 4 ll1 Triage Assessment: 14:45 General: Appears in no apparent distress. Behavior is calm. iw Historical: - Allergies: 14:27 No Known Allergies; ll1 - PMHx: 14:27 None; ll1 - PSHx: 14:27 left shoulder; ll1 - Immunization history:: Flu vaccine is not up to date. - Social history:: Smoking status: Patient denies any tobacco usage or history of. Screenin:45 Abuse screen: Denies threats or abuse. Denies injuries from another. Nutritional iw screening: No deficits noted. Tuberculosis screening: No symptoms or risk factors identified. Fall Risk None identified. Assessment: 14:40 General: Appears in no apparent distress. Behavior is calm, cooperative. Pain: Denies iw pain. Neuro: Level of Consciousness is awake, alert, obeys commands. Vital Signs: 14:26 BP 158 / 104; Pulse 98; Resp 17; Temp 98.7; Pulse Ox 100% ; Pain 0/10; ll1 ED Course: 14:05 Patient arrived in ED. mr 14:27 Triage completed. ll1 14:28 Arm band placed on Patient placed in an exam room, on a stretcher. ll1 14:29 Jose Abdi PA is PHCP. cp 14:29 Teddy Ramirez MD is Attending Physician. cp 14:29 Dorothy Kirby, RN is Primary Nurse. iw 14:40 Patient has correct armband on for positive identification. iw 14:45 No provider procedures requiring assistance completed. Patient did not have IV access iw during this emergency room visit. Administered Medications: No medications were administered Outcome: 14:42 Discharge ordered by MD. cp 14:45 Discharged to home ambulatory. iw 14:45 Condition: good 14:45 Discharge instructions given to patient, Instructed on discharge instructions, follow up and referral plans. Demonstrated understanding of instructions. 14:46 Patient left the ED. iw Signatures: Belinda Rodríguez mr Dorothy Kirby, RN RN iw Jose Abdi PA PA Pee Oshea, RN RN ll1
--- NOTE | 2020-09-18 14:43 | EDPHYS ---
Physician Documentation [facility] Name: Latrell Bush Age: 30 yrs Sex: Male : 1990 Arrival Date: 09/18/2020 Time: 14:05 Bed 25 Private MD: ED Physician Teddy Ramirez HPI: 09/18 14:37 This 30 yrs old Male presents to ER via Ambulatory with complaints of Suture cp Removal. 14:37 The patient has aster on the left upper forehead and left forearm. Previous cp treatment: the care was rendered at [facility], Treatment type: The patient's original treatment included aster. Sutures/aster progress: The patient has no c/o's. The wound is well-healing with no redness, swelling, discharge, or dehiscence reported. Historical: - Allergies: 14:27 No Known Allergies; ll1 - PMHx: 14:27 None; ll1 - PSHx: 14:27 left shoulder; ll1 - Immunization history:: Flu vaccine is not up to date. - Social history:: Smoking status: Patient denies any tobacco usage or history of. ROS: 14:38 All other systems are negative. cp Exam: 14:38 Constitutional: The patient appears in no acute distress, alert, awake, well developed, cp well nourished. 14:38 Head/face: laceration to left upper forehead appears well healed with no erythema, no dehiscence, no swelling noted. [address] 14:38 Musculoskeletal/extremity: Extremities: noted in the left forearm laceration appears well healed with no dehiscence, no erythema, no swelling noted. [address]: Vital Signs: 14:26 BP 158 / 104; Pulse 98; Resp 17; Temp 98.7; Pulse Ox 100% ; Pain 0/10; ll1 Procedures: 14:40 Suture/Staple removal: Removed 6 aster, from left upper forehead, site appears well cp healed, Patient tolerated well. 14:41 Suture/Staple removal: Removed 3 aster, from left forearm, site appears well healed, cp Patient tolerated well. MDM: 14:37 Patient medically screened. cp 14:41 Data reviewed: vital signs, nurses notes, and as a result, I will discharge patient. cp Administered Medications: No medications were administered Disposition: 14:50 Chart complete. cp 15:44 Co-signature as Attending Physician, Teddy Ramirez MD. rn Disposition: 09/18/20 14:42 Discharged to Home. Impression: Encounter for removal of sutures - aster. - Condition is Stable. - Discharge Instructions: Suture Removal, Care After. - Medication Reconciliation Form, Thank You Letter, Antibiotic Education, Prescription Opioid Use form. - Follow up: Private Physician; When: 2 - 3 days; Reason: Worsening of condition. - Problem is new. - Symptoms have improved. Signatures: Dorothy Kirby RN RN Teddy Garcia MD MD rn Jose Abdi PA PA cp Lewis, Lynsay, RN RN ll1 Corrections: (The following items were deleted from the chart) 14:46 14:42 09/18/2020 14:42 Discharged to Home. Impression: Encounter for removal of sutures iw - aster. Condition is Stable. Forms are Medication Reconciliation Form, Thank You Letter, Antibiotic Education, Prescription Opioid Use. Follow up: Private Physician; When: 2 - 3 days; Reason: Worsening of condition. Problem is new. Symptoms have improved. cp
[2020-09-19 00:22] VITALS: BP 158/104; TEMP 98.7; O2SAT 100
== END 2020-09-18 14:46 | disposition home or self-care (01) ==
LOC: ER 14:03
DX: Z48.02 Encounter for removal of sutures (principal)
CPT/HCPCS: 99281

== ENCOUNTER 2022-03-06 15:41 | Emergency (ER) | payer SELFPAY ==
--- NOTE | 2022-03-06 16:12 | EDPHYS ---
Physician Documentation [facility] Name: Latrell Bush Age: 32 yrs Sex: Male : 1990 Arrival Date: 03/06/2022 Time: 15:43 Bed 30 Private MD: ED Physician Jose Ram HPI: 03/06 16:05 This 32 yrs old Male presents to ER via Ambulatory with complaints of Toothache. cp 16:05 The patient presents with broken tooth/teeth, pain. The problem is located in the left cp upper jaw. Onset: The symptoms/episode began/occurred 2 day(s) ago. Duration: The symptoms are continuous, and are steadily getting worse. Associated signs and symptoms: Pertinent negatives: fever, vomiting, facial swelling. Severity of symptoms: in the emergency department the symptoms are unchanged, despite home interventions. Historical: - Allergies: 16:00 No Known Allergies; iw - Immunization history:: Adult Immunizations up to date, Client reports having NOT received the Covid vaccine. - Social history:: Smoking status: Patient reports the use of cigarette tobacco products, smokes one-half pack cigarettes per day. ROS: 16:06 Eyes: Negative for injury, pain, redness, and discharge. cp 16:06 Constitutional: Negative for body aches, chills, fever, poor PO intake. 16:06 ENT: Positive for dental pain, Negative for drainage from ear(s), ear pain, difficulty swallowing, difficulty handling secretions. 16:06 Cardiovascular: Negative for chest pain, palpitations. 16:06 Respiratory: Negative for cough, shortness of breath, wheezing. 16:06 Neuro: Negative for altered mental status, headache, weakness. 16:06 All other systems are negative. Exam: 16:08 Head/Face: Normocephalic, atraumatic. cp 16:08 Constitutional: The patient appears in no acute distress, alert, awake, non-toxic, well developed, well nourished, uncomfortable. 16:08 Eyes: Periorbital structures: appear normal, Conjunctiva: normal, no exudate, no injection, Sclera: no appreciated abnormality, Lids and lashes: appear normal, bilaterally. 16:08 ENT: External ear(s): are unremarkable, Nose: is normal, Mouth: Lips: moist, Oral mucosa: moist, Posterior pharynx: Airway: no evidence of obstruction, patent, Tonsils: are normal in appearance, swelling, is not appreciated, erythema, is not appreciated, exudate, is not appreciated, Dental exam: abscess, is not appreciated, dental caries, that is mild, diffusely, fractured teeth are noted, specifically the upper left second molar (#15), gum swelling, not appreciated, pain, that is moderate, specifically in the upper left second molar (#15), Voice: is normal. 16:08 Neck: ROM/movement: is normal, is supple, without pain, no range of motions limitations, Lymph nodes: no appreciated lymphadenopathy. 16:08 Chest/axilla: Inspection: normal. 16:08 Respiratory: the patient does not display signs of respiratory distress, Respirations: normal, no use of accessory muscles, no retractions, labored breathing, is not present. Vital Signs: 16:11 BP 134 / 87; Pulse 72; Resp 16; Temp 98.0; Pulse Ox 97% on R/A; iw MDM: 15:57 Patient medically screened. cp 16:10 Differential diagnosis: dental caries, dental abscess, pericoronitis, cp gingivostomatitis. Data reviewed: vital signs, nurses notes, and as a result, I will discharge patient. Administered Medications: 16:44 Drug: Tylenol 1000 mg Route: PO; bm7 16:46 Follow up: Response: No adverse reaction bm7 16:44 Drug: Clindamycin 300 mg Route: PO; bm7 16:45 Follow up: Response: No adverse reaction bm7 16:46 Follow up: Response: No adverse reaction bm7 16:44 Drug: Ibuprofen 800 mg Route: PO; bm7 16:45 Follow up: Response: No adverse reaction bm7 Disposition Summary: 03/06/22 16:11 Discharge Ordered Location: Home cp Problem: new cp Symptoms: are unchanged cp Condition: Stable cp Diagnosis - Disorder of teeth and supporting structures, unspecified cp Followup: cp - With: Asif Smyth DDS - When: 2 - 3 days - Reason: Recheck today's complaints Discharge Instructions: - Discharge Summary Sheet cp - Dental Pain cp Forms: - Medication Reconciliation Form cp - Thank You Letter cp - Antibiotic Education cp - Prescription Opioid Use cp Prescriptions: - Clindamycin HCl 300 mg Oral Capsule - take 1 capsule by ORAL route every 6 hours for 10 days; 40 capsule; Refills: 0, cp Product Selection Permitted - Diclofenac Sodium 75 mg Oral Tablet Sustained Release - take 1 tablet by ORAL route 2 times per day; 30 tablet; Refills: 0, Product cp Selection Permitted - Tramadol 50 mg Oral Tablet - take 1 tablet by ORAL route every 8 hours as needed; 12 tablet; Refills: 0, cp Product Selection Permitted Signatures: Dorothy Kirby, RN RN iw Jose Abdi PA PA cp McCarthy, Brittany RN RN bm7
--- NOTE | 2022-03-06 16:12 | ER ---
Nurse's Notes [facility] Name: Latrell Bush Age: 32 yrs Sex: Male : 1990 Arrival Date: 03/06/2022 Time: 15:43 Bed 30 Private MD: Diagnosis: Disorder of teeth and supporting structures, unspecified Presentation: 03/06 15:59 Chief complaint: Patient states: pain to left upper jaw, has two cracked teeth, took iw ibuprofen and two doses of amoxicillin. Coronavirus screen: At this time, the client does not indicate any symptoms associated with coronavirus-19. Ebola Screen: Patient negative for fever greater than or equal to 101.5 degrees Fahrenheit, and additional compatible Ebola Virus Disease symptoms Patient denies exposure to infectious person. Patient denies travel to an Ebola-affected area in the 21 days before illness onset. No symptoms or risks identified at this time. Initial Sepsis Screen: Does the patient meet any 2 criteria? No. Patient's initial sepsis screen is negative. Does the patient have a suspected source of infection? No. Patient's initial sepsis screen is negative. Risk Assessment: Do you want to hurt yourself or someone else? Patient reports no desire to harm self or others. Onset of symptoms was March 04, 2022. 15:59 Method Of Arrival: Ambulatory iw 15:59 Acuity: KELLY 4 iw Historical: - Allergies: 16:00 No Known Allergies; iw - Immunization history:: Adult Immunizations up to date, Client reports having NOT received the Covid vaccine. - Social history:: Smoking status: Patient reports the use of cigarette tobacco products, smokes one-half pack cigarettes per day. Screenin:44 Abuse screen: Denies threats or abuse. Nutritional screening: No deficits noted. bm7 Tuberculosis screening: No symptoms or risk factors identified. Fall Risk None identified. Assessment: 16:44 Reassessment: No changes from previously documented assessment. Patient and/or family bm7 updated on plan of care and expected duration. Pain level reassessed. Patient is alert, oriented x 3, equal unlabored respirations, skin warm/dry/pink. Vital Signs: 16:11 BP 134 / 87; Pulse 72; Resp 16; Temp 98.0; Pulse Ox 97% on R/A; iw ED Course: 15:43 Patient arrived in ED. rg4 15:56 [facility] cp 15:56 Jose Ram MD is Attending Physician. cp 16:00 Triage completed. iw 16:11 Asif Smyth DDS is Referral Physician. cp 16:12 Arm band placed on. iw 16:44 Patient has correct armband on for positive identification. Call light in reach. bm7 16:44 Client placed on continuous cardiac and pulse oximetry monitoring. NIBP monitoring bm7 applied. 16:44 No provider procedures requiring assistance completed. Patient did not have IV access bm7 during this emergency room visit. Administered Medications: 16:44 Drug: Tylenol 1000 mg Route: PO; bm7 16:46 Follow up: Response: No adverse reaction bm7 16:44 Drug: Clindamycin 300 mg Route: PO; bm7 16:45 Follow up: Response: No adverse reaction bm7 16:46 Follow up: Response: No adverse reaction bm7 16:44 Drug: Ibuprofen 800 mg Route: PO; bm7 16:45 Follow up: Response: No adverse reaction bm7 Medication: 16:44 VIS not applicable for this client. bm7 Outcome: 16:11 Discharge ordered by MD. cp 16:44 Discharged to home ambulatory. bm7 16:44 Condition: good 16:44 Discharge instructions given to patient, family, Instructed on discharge instructions, follow up and referral plans. medication usage, Demonstrated understanding of instructions, follow-up care, medications, Prescriptions given X 3. 16:46 Patient left the ED. bm7 Signatures: Dorothy Kirby, RN TELMA Jose Abdi PA PA cp Garcia, Rubi rg4 Leonila Castellano RN RN bm7
[2022-03-06] MEDS ORDERED: ACETAMINOPHEN 500 MG TAB ONE (16:41)
[2022-03-06] MEDS ORDERED: IBUPROFEN 400 MG TAB ONE (16:42)
[2022-03-06 18:01] VITALS: BP 134/87; TEMP 98; O2SAT 97
== END 2022-03-06 16:46 | disposition home or self-care (01) ==
LOC: ER 15:41
DX: K08.89 Other specified disorders of teeth and supporting structures (principal)
CPT/HCPCS: 99283

== ENCOUNTER 2022-07-11 17:34 | Emergency (ER) | payer SELFPAY ==
[2022-07-11] MEDS ORDERED: dexAMETHasone 10 MG/ML VIAL ONE (18:36)
[2022-07-11] MEDS ORDERED: PEN G BENZ LA 1.2MU/2ML SYRINGE IM ONE (18:43)
--- NOTE | 2022-07-11 19:23 | ER ---
Nurse's Notes [facility] Name: Latrell Bush Age: 32 yrs Sex: Male : 1990 Arrival Date: 07/11/2022 Time: 17:37 Bed IW1 Private MD: Diagnosis: Streptococcal pharyngitis Presentation: 07/11 18:23 Chief complaint: Patient states: sore throat, chills, fever, vomiting that began aa5 Sunday. Denies cough. 18:24 Coronavirus screen: fever. Ebola Screen: Patient denies travel to an Ebola-affected [facility] area in the 21 days before illness onset. Initial Sepsis Screen: Does the patient meet any 2 criteria? HR > 90 bpm. Does the patient have a suspected source of infection? No. Patient's initial sepsis screen is negative. Risk Assessment: Do you want to hurt yourself or someone else? Patient reports no desire to harm self or others. Onset of symptoms was June 2022. 18:24 Acuity: KELLY 4 aa5 18:24 Method Of Arrival: Ambulatory aa5 Historical: - Allergies: 18:24 No Known Allergies; aa5 - PMHx: 18:24 None; aa5 - PSHx: 18:24 None; aa5 - Immunization history:: Adult Immunizations unknown. - Social history:: Smoking status: Patient reports the use of cigarette tobacco products, 5 cigarettes a day . Screenin:33 [facility] ED Fall Risk Assessment (Adult) History of falling in the last 3 months, ll3 including since admission No falls in past 3 months (0 pts). Abuse screen: Denies threats or abuse. Denies injuries from another. Nutritional screening: No deficits noted. Tuberculosis screening: No symptoms or risk factors identified. Vital Signs: 18:24 BP 125 / 87; Pulse 107; Resp 18 S; Temp 99.0(O); Pulse Ox 100% on R/A; Weight 63.5 kg aa5 (R); Height 5 ft. 7 in. (170.18 cm) (R); 20:00 BP 123 / 88; Pulse 96; Resp 17; Pulse Ox 98% ; ll3 18:24 Body Mass Index 21.93 (63.50 kg, 170.18 cm) aa5 ED Course: 17:37 Patient arrived in ED. am2 18:15 Ian Berry PA is PHCP. [facility] 18:15 Medardo Kingston MD is Attending Physician. [facility] 18:23 Arm band placed on. aa5 18:25 Triage completed. aa5 19:22 Maribel Gunderson MD is Referral Physician. [facility] 20:33 Patient has correct armband on for positive identification. Bed in low position. Call ll3 light in reach. Side rails up X 1. Adult w/ patient. 20:33 No provider procedures requiring assistance completed. Patient did not have IV access ll3 during this emergency room visit. Administered Medications: 18:36 Not Given (not availablee): Clindamycin 600 mg IM once [facility] 18:38 Not Given (differentt): Clindamycin 300 mg PO once [facility] 18:45 Drug: Decadron (dexamethasone) 10 mg Route: IM; Site: left gluteus; aa5 18:46 Drug: Bicillin L-A (penicillin G Benzathine) 1.2 million units Route: IM; Site: right aa5 gluteus; Medication: 20:33 VIS not applicable for this client. ll3 Outcome: 19:22 Discharge ordered by . [facility] 20:33 Discharged to home ambulatory, with family. ll3 20:33 Condition: stable 20:33 Discharge instructions given to patient, family, Instructed on discharge instructions, follow up and referral plans. Demonstrated understanding of instructions, follow-up care. 20:33 Patient left the ED. ll3 Signatures: Ian Berry PA PA Minna Portillo RN RN aa5 Alexus Jacobs am2 Michele Fox RN RN ll3
--- NOTE | 2022-07-11 19:23 | EDPHYS ---
Physician Documentation [facility] Name: Latrell Bush Age: 32 yrs Sex: Male : 1990 Arrival Date: 07/11/2022 Time: 17:37 Bed IW1 Private MD: ED Physician Medardo Kingston Historical: - Allergies: 07/11 18:24 No Known Allergies; aa5 - PMHx: 18:24 None; aa5 - PSHx: 18:24 None; aa5 - Immunization history:: Adult Immunizations unknown. - Social history:: Smoking status: Patient reports the use of cigarette tobacco products, 5 cigarettes a day . Vital Signs: 18:24 BP 125 / 87; Pulse 107; Resp 18 S; Temp 99.0(O); Pulse Ox 100% on R/A; Weight 63.5 kg aa5 (R); Height 5 ft. 7 in. (170.18 cm) (R); 20:00 BP 123 / 88; Pulse 96; Resp 17; Pulse Ox 98% ; ll3 18:24 Body Mass Index 21.93 (63.50 kg, 170.18 cm) aa5 MDM: 18:29 Patient medically screened. [facility] 19:21 Data reviewed: vital signs, nurses notes. I considered the following discharge [facility] prescriptions or medication management in the emergency department Medications were administered in the Emergency Department. See AUG. 07/11 18:28 Order name: Strep; Complete Time: 19:21 aa5 07/11 18:28 Order name: Throat Culture aa5 Administered Medications: 18:36 Not Given (not availablee): Clindamycin 600 mg IM once [facility] 18:38 Not Given (differentt): Clindamycin 300 mg PO once [facility] 18:45 Drug: Decadron (dexamethasone) 10 mg Route: IM; Site: left gluteus; aa5 18:46 Drug: Bicillin L-A (penicillin G Benzathine) 1.2 million units Route: IM; Site: right aa5 gluteus; Disposition Summary: 07/11/22 19:22 Discharge Ordered Location: Home [facility] Condition: Stable [facility] Diagnosis - Streptococcal pharyngitis [facility] Followup: [facility] - With: Maribel Gunderson MD - When: 1 - 2 days - Reason: Recheck today's complaints, Continuance of care, Re-evaluation by your physician Discharge Instructions: - Discharge Summary Sheet emory - Strep Throat, Adult emory Forms: - Medication Reconciliation Form emory - Thank You Letter emory - Antibiotic Education emory - Work release form emory - Prescription Opioid Use emory Signatures: Dispatcher [employer] Ian Perez PA PA jmm Calderon, Audri, RN RN aa5
[2022-07-11 21:28] VITALS: BP 123/88
[2022-07-11 21:34] VITALS: TEMP 98.4; O2SAT 100
== END 2022-07-11 20:33 | disposition home or self-care (01) ==
LOC: ER 17:34
DX: J02.0 Streptococcal pharyngitis (principal); F17.210 Nicotine dependence, cigarettes, uncomplicated
CPT/HCPCS: 87070; 87081; J0561; J1100